=== PATIENT | female | born 1955 | race Caucasian/White ===

== ENCOUNTER 2017-05-28 11:06 | Emergency (ER) | payer OTHER ==
[~2017-05-28] VITALS: Ht 162.6 cm; Wt 72.6 kg
[2017-05-28 11:31] VITALS: BP 156/97
[2017-05-28] MEDS ORDERED: ZITHROMAX250 M2 PO (11:59)
[2017-05-28] MEDS ORDERED: BENZONATATE200 M1 PO (11:59)
[2017-05-28] MEDS ORDERED: NASONEX17 GM NASB (11:59)
--- NOTE | 2017-05-28 11:59 | ED INFLUENZA/URI COMPLAINT ---
History of Present Illness General Chief Complaint: General Adult Stated Complaint: ?FLU, CONGESTION, SORE THROAT, SINUS PAIN Source: patient Exam Limitations: no limitations Vital Signs & Intake/Output Vital Signs & Intake/Output Vital Signs Date Time Temp Pulse Resp B/P B/P Pulse O2 O2 Flow FiO2 Mean Ox Delivery Rate 05/28 1159 Room Air 05/28 1131 97.4 93 20 156/97 98 Room Air Allergies Coded Allergies: NO KNOWN ALLERGIES (12/20/13) Reconcile Medications Azithromycin (Zithromax) 250 MG TABLET 1 DP PO AD sinusitis 2 the first day followed by 1 for days 2-5 Benzonatate 200 MG CAPSULE 1 CAP PO TIDPRN cough Mometasone Furoate (Nasonex) 50 MCG SPRAY.PUMP 2 SPRAY NASB DAILY congestion Triage Note: PT TO ED C/O URI S/S SINCE TUESDAY. AFEBRILE. Triage Nurses Notes Reviewed? yes Onset: Abrupt Duration: day(s): (4), constant, continues in ED Timing: recent history Severity: mild No Modifying Factors: none HPI: 61-year-old female comes into the emergency room with complaints of sinus congestion runny nose postnasal drip and mild cough. Denies any fever vomiting diarrhea. Trying ldli-ttr-yugxder medication with minimal relief. (Tomi Ochoa) Past History Travel History Traveled to [place] past 21 day No Medical History Any Pertinent Medical History? none Surgical History Surgical History: non-contributory Psychosocial History What is your primary language Other Tobacco Use: Never used ETOH Use: denies use Illicit Drug Use: denies illicit drug use Family History Hx Contributory? No (Tomi Ochoa) Review of Systems Review of Systems Constitutional: Reports: see HPI. EENTM: Reports: see HPI. Respiratory: Reports: see HPI. Cardiovascular: Reports: no symptoms. GI: Reports: no symptoms. Genitourinary: Reports: no symptoms. Musculoskeletal: Reports: no symptoms. Skin: Reports: no symptoms. Neurological/Psychological: Reports: no symptoms. Hematologic/Endocrine: Reports: no symptoms. Immunologic/Allergic: Reports: no symptoms. All Other Systems: Reviewed and Negative (Tomi Ochoa) Physical Exam Physical Exam General Appearance: well developed/nourished, no apparent distress, alert, awake Head: atraumatic, normal appearance Eyes: Bilateral: normal appearance, EOMI. Ears, Nose, Throat: normal ENT inspection, moist mucous membrane, hearing grossly normal, pharyngeal erythema Neck: normal inspection Respiratory: normal breath sounds, no respiratory distress Cardiovascular: regular rate/rhythm Back: normal inspection Extremities: normal inspection Neurologic/Psych: awake, alert, oriented x 3, normal gait, normal mood/affect Skin: intact, normal color Core Measures Sepsis Present: No Sepsis Focused Exam Completed? No (Tomi Ochoa) Progress Differential Diagnosis: influenza, otitis, pneumonia, pharyngitis, sinusitis Plan of Care: Orders Procedure Date/time Status RAPID VIRAL INFLUENZA A 05/28 1133 Complete Microbiology 05/28 1134 NASOPHARYN: Influenza Virus A & B Rapid Smear - COMP Initial ED EKG: none Comments: 05/28/2017 12:05:04 PM Patient clinically looks well. In no apparent distress. Nontoxic appearing. Symptoms most consistent with sinusitis. Follow-up with PCP as outpatient as needed. Rest. (Tomi Ochoa) Departure Departure Disposition: HOME OR SELF CARE Condition: Stable Clinical Impression Primary Impression: Sinusitis Referrals: Perez GEORGE,Rudy Curiel (PCP/Family) Additional Instructions: Taking Z-Alejandro, Tessalon Perles, and Nasonex as prescribed. Rest. Drink plenty of fluids. Tylenol Motrin as needed at home. Please go over all results of today's visit with your primary care doctor. Contact your primary care doctor to let them know you were here in the emergency room. There may be nonspecific findings which may not be related to your visit today here in the emergency room but may require further evaluation and chronic monitoring by your primary care doctor. If you had a laceration today the chance of foreign body always remains. You should follow-up with your primary care doctor for recheck in 3-5 days for a wound check. If you had an x-ray done there is a chance that a fracture could have been missed on initial read and you should follow-up with your primary care doctor for repeat x-rays if symptoms persist. If your blood pressure was elevated here in the emergency room please have rechecked by [facility] primary care doctor within the next 48. If you were prescribed a narcotic here in the emergency room or any type of controlled substances you're not allowed to drive while taking this medication or operate any type of heavy machinery. Narcotics can make you feel lightheaded dizziness nausea and can cause constipation. You may need to picker/puller a stool softener. Thank you for choosing [facility] emergency room. Please return to the emergency room immediately if you have any other concerns worsening of symptoms. Departure Forms: Customer Survey General Discharge Information Prescriptions: Current Visit Scripts Azithromycin (Zithromax) 1 DP PO AD #6 TAB 2 the first day followed by 1 for days 2-5 Benzonatate 1 CAP PO TIDPRN #30 CAP Mometasone Furoate (Nasonex) 2 SPRAY NASB DAILY #1 INHAL (Tomi Ochoa) PA/CREDIT ADMINISTRATION MANAGER Co-Sign Statement Statement: ED Attending supervision documentation- [] I saw and evaluated the patient. I have also reviewed all the pertinent lab results and diagnostic results. I agree with the findings and the plan of care as documented in the PA's/CREDIT ADMINISTRATION MANAGER's documentation. [X] I have reviewed the ED Record and agree with the PA's/CREDIT ADMINISTRATION MANAGER's documentation. [] Additions or exceptions (if any) to the PAs/CREDIT ADMINISTRATION MANAGER's note and plan are summarized below: [] (Ciera GEORGE,Jasmine)
== END 2017-05-28 12:05 ==
LOC: ERH 11:06
DX: J32.9 Chronic sinusitis, unspecified (principal)
CPT/HCPCS: 87804; 87804-59